=== PATIENT | female | born 1970 | race Caucasian/White ===

== ENCOUNTER → 2021-06-16 06:21 | Outpatient (CLI) | payer OTHER, SELFPAY ==
[2021-06-16 17:46] LABS: SARS-CoV-2 RNA PCR Negative
== END ==
PROVIDERS: PCP Internal Medicine; Visit Provider Nurse Practitioner
DX: R05.9 Cough, unspecified (principal); Z20.822 Contact with and (suspected) exposure to COVID-19
CPT/HCPCS: C9803; U0003; U0005

== ENCOUNTER 2021-09-07 09:09 | Outpatient (CLI) | payer OTHER, SELFPAY ==
--- NOTE | 2021-09-07 | ECG_ITS ---
Measurements Intervals [place] Rate: 74 P: 53 FL: 118 QRS: 70 QRSD: 77 T: 69 QT: 359 QTc: 398 Interpretive Statements SINUS RHYTHM WITH SHORT FL INTERVAL BORDERLINE ECG Electronically Signed On 09-07-2021 9:50:56 [employer] BLAST[employer] by Matt Cerda D.O.
== END 2021-09-07 09:10 | disposition home or self-care (01) ==
PROVIDERS: PCP Internal Medicine
DX: M25.522 Pain in left elbow (principal); R94.31 Abnormal electrocardiogram [ECG] [EKG]
CPT/HCPCS: 93005

== ENCOUNTER → 2022-04-12 10:31 | Outpatient (CLI) | payer OTHER, SELFPAY ==
--- NOTE | ~2022-04-12 | MM_ITS ---
EXAMINATION: MM scrn geovany implant BI w luan HISTORY: Screening mammogram TECHNIQUE: Craniocaudal and mediolateral oblique 3-D tomosynthesis images with implant displacement a nd synthetic 2-D images were generated. Craniocaudal and mediolateral oblique views of the breasts wi thout implant displacement were obtained using full field digital mammography. CAD analysis was submi tted and interpreted. COMPARISON: 09/07/2019, 09/01/2018, 07/29/2017, 10/24/2015 BREAST PARENCHYMAL COMPOSITION: There are scattered areas of fibroglandular density. FINDINGS: There is no evidence of suspicious mass, calcification, or architectural distortion to sugg est malignancy in either breast. There has been no suspicious interval change. IMPRESSION: 1. No mammographic evidence of malignancy. 2. Recommend routine screening mammography in one year. BI-RADS Category 1: Negative Reviewed, dictated and finalized at location A.
--- NOTE | ~2022-04-12 | DEXA_ITS ---
Bone Density Report Name: CINDI HORTA Age: 51 Sex: Female Ethnicity: White Date of : 1970 Indication: postmenopausal osteoporosis; monitoring treatment; height loss; Referring Provider: CHINEDU FRANCOIS Study: Bone densitometry was performed. Exam Date: April 12, 2022 Accession number: [id number] Bone Density: Region BMD T-score Z-score Classification AP Spine (L1-L4) 0.720 -3.0 -2.0 Osteoporosis Femoral Neck (Left) 0.609 -2.2 -1.2 Osteopenia Total Hip (Left) 0.775 -1.4 -0.8 Osteopenia Femoral Neck (Right) 0.605 -2.2 -1.2 Osteopenia Total Hip (Right) 0.770 -1.4 -0.8 Osteopenia Total Hip Mean 0.773 -1.4 -0.8 Osteopenia World Health Organization criteria for BMD impression classify patients as: Normal (T-score at or above -1.0), Osteopenia (T-score between -1.0 and -2.5), or Osteoporosis (T-score at or below -2.5). 10-year Fracture Risk: FRAX not reported because: Some T-score for Spine Total or Hip Total or Femoral Neck at or below -2.5 Treated for osteoporosis Previous Exams: Region Exam Age BMD T-score BMD Change BMD Change Date g/cm2 vs Baseline vs Previous AP Spine(L1-L4) 04/12/2022 51 0.720 -3.0 -0.042* -0.042* 09/07/2019 48 0.762 -2.6 Total Hip(Left) 04/12/2022 51 0.775 -1.4 0.006 0.006 09/07/2019 48 0.769 -1.4 Total Hip(Right) 04/12/2022 51 0.770 -1.4 0.000 0.000 09/07/2019 48 0.770 -1.4 *Denotes significance at 95% confidence level, LSC for AP Spine = 0.022 g/cm2, LSC for Total Hip = 0.027 g/cm2 Clinical Information Provided by Patient: Is being treated for osteoporosis Has used the following medications: Vitamin D, pt used bone med around 2 yrs ago for 6 months, unsure of name, MT currently Patient maximum height was 62.5 Menopause Age: 48 No regular weight bearing exercise Drinks caffeinated beverages Onset of menses at age 11 Number of children 2 Impression: The patient has osteoporosis, based on the Total Spine T-score. The BMD for the AP Spine(L1-L4) decreased, changing by -0.042 since the last DXA exam. Discussion: SIGNIFICANT BONE LOSS OBSERVED. Adherence to therapy (including calcium and vitamin D intake) should be assessed. If compliance is not a factor, review management and exclusion of secondary causes of bone loss. It is important to ask patients whether they are taking their medications and to encourage continued and appropriate comp
== END ==
PROVIDERS: PCP Internal Medicine; Visit Provider Obstetrics & Gynecology Gynecology
DX: Z12.31 Encounter for screening mammogram for malignant neoplasm of breast (principal); Z78.0 Asymptomatic menopausal state; M81.0 Age-related osteoporosis without current pathological fracture; M85.852 Other specified disorders of bone density and structure, left thigh; M85.851 Other specified disorders of bone density and structure, right thigh
CPT/HCPCS: 77063; 77067; 77080

== ENCOUNTER 2022-11-19 09:27 | Outpatient (CLI) | payer OTHER, SELFPAY ==
[2022-11-19 20:14] LABS: Basophils Absolute Auto 0.1 K/mm3 (0.0-0.1); Basophils Percent Auto 1.6 % (0.2-1.2); Eosinophils Absolute Auto 0.1 K/mm3 (0-0.3); Eosinophils Percent Auto 1.6 % (0-4.4); Hemoglobin 13.5 g/dL (12.0-15.0); Immature Granulocyte Absolute 0.01 K/mm3 (0.00-0.031); Immature Granulocyte Percent A 0.1 % (0-0.5); Lymphocytes Absolute Auto 1.74 K/mm3 (0.9-3.2); Lymphocytes Percent Auto 24.7 % (18.3-44.2); Mean Corpuscular HGB Conc 32.1 g/dl (32-36); Mean Corpuscular Hemoglobin 31.2 pg (26-34); Mean Platelet Volume 12.5 fl (7.4-10.4); Monocytes Absolute Auto 0.7 K/mm3 (0.1-0.6); Monocytes Percent Auto 10.2 % (2.6-8.5); Neutrophils Absolute Auto 4.4 K/mm3 (1.3-6.7); Neutrophils Percent Auto 61.8 % (45.5-73.1); Platelet Count Result 279 k/mm3 (150-375); Red Blood Count 4.33 M/mm3 (4.2-5.4); Red Cell Distribution Width 14.6 % (11.5-14.5); White Blood Count 7.1 K/mm3 (4.5-10.0)
[2022-11-19 20:36] LABS: Alanine Aminotransferase 18 U/L (6-35); Albumin Level 4.4 g/dL (3.5-5.1); Alkaline Phosphatase 77 U/L (38-126); Anion Gap 5 mmol/L (8-16); Aspartate Amino Transferase 21 U/L (14-36); Bilirubin,Total 0.9 mg/dL (0.2-1.3); Blood Urea Nitrogen 11 mg/dL (7-17); Calcium 9.2 mg/dL (8.4-10.2); Carbon Dioxide 29 mmol/L (22-30); Chloride 105 mmol/L (98-107); Cholesterol 204 mg/dL (0-200); Creatine Kinase 63 U/L (30-135); Estimated Glomerular Filt Rate > 60; Glucose 95 mg/dL (65-110); HDL Direct 57 mg/dL; Potassium 4.2 mmol/L (3.4-5.0); Sodium 139 mmol/L (137-145); Triglycerides 76 mg/dL (<150)
[2022-11-19 20:40] LABS: Rheumatoid Factor < 8.6 IU/ML (<12)
[2022-11-19 20:47] LABS: LDL Cholesterol Direct 101 mg/dL
[2022-11-19 20:51] LABS: Erythrocyte Sedimentation Rate 15 mm/hr (0-20)
[2022-11-22 20:31] LABS: ANA Cascade Screen Negative (Negative)
== END 2022-11-19 09:28 | disposition home or self-care (01) ==
LOC: ANHGOSHLAB 09:28
PROVIDERS: PCP Internal Medicine; Visit Provider Nurse Practitioner
DX: R74.8 Abnormal levels of other serum enzymes (principal); E03.9 Hypothyroidism, unspecified; M25.50 Pain in unspecified joint
CPT/HCPCS: 36415; 80053; 80061; 82550; 84443; 85025; 85652; 86038; 86430

== ENCOUNTER 2022-12-04 08:43 | Outpatient (CLI) | payer OTHER, SELFPAY ==
--- NOTE | ~2022-12-04 | XR_ITS ---
EXAMINATION: XR knee RT 3V DATE: 12/04/2022 08:54 INDICATION: Right knee pain. TECHNIQUE: 3 views of right knee were obtained. COMPARISON: None. FINDINGS: Bone alignment is normal. No fracture. Joint spaces are normal. No knee joint effusion. IMPRESSION: 1. Normal right knee. Reviewed, dictated and finalized at location A. IMPRESSION: 1. Normal right knee.
--- NOTE | ~2022-12-04 | XR_ITS ---
EXAMINATION: XR knee LT 3V DATE: 12/04/2022 08:54 INDICATION: Left knee pain. TECHNIQUE: 3 views of left knee were obtained. COMPARISON: None. FINDINGS: Bone alignment is normal. No fracture. Joint spaces are normal. No knee joint effusion. IMPRESSION: 1. Normal left knee. Reviewed, dictated and finalized at location A. IMPRESSION: 1. Normal left knee.
== END 2022-12-04 08:44 ==
PROVIDERS: PCP Internal Medicine; Visit Provider Clinical Nurse Specialist
DX: M25.561 Pain in right knee (principal); M25.562 Pain in left knee
CPT/HCPCS: 73562

== ENCOUNTER 2023-09-24 09:45 | Outpatient (CLI) | payer OTHER, SELFPAY ==
[2023-09-24 10:25] LABS: Basophils Absolute Auto 0.1 K/mm3 (0.0-0.1); Basophils Percent Auto 1.3 % (0.2-1.2); Eosinophils Absolute Auto 0.2 K/mm3 (0-0.3); Eosinophils Percent Auto 3.6 % (0-4.4); Hematocrit 42.4 % (37.0-47.0); Hemoglobin 13.4 g/dL (12.0-15.0); Immature Granulocyte Absolute 0.01 K/mm3 (0.00-0.031); Immature Granulocyte Percent A 0.2 % (0-0.5); Lymphocytes Percent Auto 43.6 % (18.3-44.2); Mean Corpuscular HGB Conc 31.6 g/dl (32-36); Mean Corpuscular Hemoglobin 30.8 pg (26-34); Mean Corpuscular Volume 97.5 fl (80-100); Monocytes Absolute Auto 0.6 K/mm3 (0.1-0.6); Monocytes Percent Auto 11.7 % (2.6-8.5); Neutrophils Absolute Auto 2.1 K/mm3 (1.3-6.7); Neutrophils Percent Auto 39.6 % (45.5-73.1); Platelet Count Result 198 k/mm3 (150-375); Red Blood Count 4.35 M/mm3 (4.2-5.4); Red Cell Distribution Width 13.7 % (11.5-14.5); White Blood Count 5.3 K/mm3 (4.5-10.0)
== END 2023-09-24 09:46 | disposition home or self-care (01) ==
LOC: ANHSURGERY 09:49
PROVIDERS: PCP Internal Medicine; Visit Provider Surgery
DX: K40.90 Unilateral inguinal hernia, without obstruction or gangrene, not specified as recurrent (principal); D17.1 Benign lipomatous neoplasm of skin and subcutaneous tissue of trunk
CPT/HCPCS: 36415; 85025

== ENCOUNTER 2023-09-30 02:12 | Day surgery (SDC) | payer OTHER, SELFPAY ==
[2023-09-19 08:38] VITALS: BMI 22.6
--- NOTE | 2023-09-19 08:42 | PC.NURSE ---
Report to the Outpatient Waiting Room, entrance under the green pavilion located off [facility], at time 10:00 on date 09/26/23. Planned Procedure Time: 12:00. Time changes happen often and if your time is changed the preop area will call you the afternoon before. - You and your visitor will be asked to self-screen and do not enter if you have any COVID symptoms. - A mask is optional within the hospital at this time. Patients may have clear liquids (water, carbonated beverages, clear teas, apple juice) until 3 hours prior to surgery (9:00) with a maximum of 20 ounces. - No food from midnight until time of surgery Take the following medications with a SIP of water the morning of surgery: LEVOTHYROXINE DO NOT STOP ANY OF YOUR OTHER PRESCRIPTION MEDICATIONS PRIOR TO SURGERY ?EXCEPT THE FOLLOWING Medications to discontinue per physician: VITAMINS/SUPPLEMENTS Date to take last dose: 09/22/23 Please no make-up, nail algerian, hairspray, perfume, deodorant, or body powder the day of surgery. No jewelry (including any body piercings) or valuables the day of surgery, leave them at home. Please take a shower or bath the night before, or the morning of, surgery with an antibacterial soap. Wear comfortable, loose fitting clothing. - Jewelry must be removed prior to entering the operating room. Rings and piercings that are not removed may be cut off. - The hospital will not accept responsibility for valuables. - Please leave all valuables, including medications, at home the day of surgery. If you are going home after surgery, a licensed car pick up driver must drive you home. - NO public transportation without another adult if you receive anesthesia. - We recommend that an adult stay with you for 24 hours following discharge. - We also recommend that you do not drive, make important decision, drink alcoholic beverages, or take any drugs that were not prescribed by your health care provider for at least 24 hours after your discharge time. Follow any additional instructions given to you from your surgeon. If you or anyone in your household have experienced Covid symptoms in the past week, please notify your surgeon or the nurse liaison at the phone number below for possible testing. Telephone instructions given to PT - CINDI HORTA and asked if any additional questions and then verbalized understanding. Patient advised to call surgeon office or pre surgery nurse liaison [phone] if any additional questions.
--- NOTE | 2023-09-24 08:35 | PC.NURSE ---
Pt states no changes in medications or health history since initial interview. New pre-op instructions reviewed with pt. Pt denies further questions at this time.
--- NOTE | 2023-09-24 08:36 | PC.NURSE ---
Report to the Outpatient Waiting Room, entrance under the green pavilion located off [facility], at time 6:00 on date 09/30/23. Planned Procedure Time: 7:30. Time changes happen often and if your time is changed the preop area will call you the afternoon before. - You and your visitor will be asked to self-screen and do not enter if you have any COVID symptoms. - A mask is optional within the hospital at this time. Patients may have clear liquids (water, carbonated beverages, clear teas, apple juice) until 3 hours prior to surgery (4:30) with a maximum of 20 ounces. - No food from midnight until time of surgery Take the following medications with a SIP of water the morning of surgery: LEVOTHYROXINE DO NOT STOP ANY OF YOUR OTHER PRESCRIPTION MEDICATIONS PRIOR TO SURGERY ?EXCEPT THE FOLLOWING Medications to discontinue per physician: VITAMINS/SUPPLEMENTS Date to take last dose: 09/26/23 Please no make-up, nail latvian, hairspray, perfume, deodorant, or body powder the day of surgery. No jewelry (including any body piercings) or valuables the day of surgery, leave them at home. Please take a shower or bath the night before, or the morning of, surgery with an antibacterial soap. Wear comfortable, loose fitting clothing. - Jewelry must be removed prior to entering the operating room. Rings and piercings that are not removed may be cut off. - The hospital will not accept responsibility for valuables. - Please leave all valuables, including medications, at home the day of surgery. If you are going home after surgery, a licensed otr company truck driver must drive you home. - NO public transportation without another adult if you receive anesthesia. - We recommend that an adult stay with you for 24 hours following discharge. - We also recommend that you do not drive, make important decision, drink alcoholic beverages, or take any drugs that were not prescribed by your health care provider for at least 24 hours after your discharge time. Follow any additional instructions given to you from your surgeon. If you or anyone in your household have experienced Covid symptoms in the past week, please notify your surgeon or the nurse liaison at the phone number below for possible testing. Telephone instructions given to PT - CINDI HORTA and asked if any additional questions and then verbalized understanding. Patient advised to call surgeon office or pre surgery nurse liaison [phone] if any additional questions.
[2023-09-30] VITALS (8 sets, daily range): BP systolic 93–115; BP diastolic 52–72; PULSE 75–97; RESP 13–17; TEMP 36.3–37; O2SAT 100
[2023-09-30] MEDS: ACETAMINOPHEN 500 MG TABLET 1000 MG PO (06:44)
[2023-09-30] MEDS: KETOROLAC 15 MG/ML VIAL (*BKC) IV PUSH (06:46)
[2023-09-30] MEDS: LACTATED RINGERS 1,000 ML 30 ML IV CONT ×2 (06:47→09:53)
--- NOTE | 2023-09-30 07:06 | WPDANESEPPF ---
Anes - Initial Pre Proc Eval Procedure: Operation Date: 09/30/23 07:30 Proposed Procedures p Open Right Inguinal Hernia Repair with Mesh, - Luis Villanueva MD s Excision of Recurrent Right Shoulder Lipoma - Luis Villanueva MD Date/Time: 09/30/23 07:06 Surgeon: Luis Villanueva MD Pre Op Diagnosis: rt inguinal hernia,recurr rt shoulder lipoma 1.5cm Patient Data Age: 53 Gender: F Height: 1.59 m Weight: 56.8 kg Last Vital Signs Temp 98.6 F 09/30/23 07:01 Pulse 97 09/30/23 07:01 Resp 16 09/30/23 07:01 BP 93/64 L 09/30/23 07:01 Pulse Ox 100 09/30/23 07:01 O2 Del Method Room Air 09/30/23 07:01 Allergies Allergy/AdvReac Type Severity Reaction Status Date / Time hydrocodone [From Vicodin] Allergy Hallucinati Verified 09/30/23 06:20 ng Home Medications Medication Instructions Recorded Confirmed Type cholecalciferol (vitamin D3) 25 1,000 unit PO DAILY 07/17/19 09/24/23 History mcg (1,000 unit) capsule (Vitamin D3) levothyroxine 25 mcg tablet 25 mcg PO DAILY 07/17/19 09/24/23 History multivitamin with minerals (Daily 1 tablet PO DAILY 07/17/19 09/24/23 History Multivitamin-Minerals tablet) melatonin 5 mg capsule 5 mg PO HS PRN Insomnia 08/02/23 09/24/23 History Patient hx anesthesia problems: post op nausea/vomiting Family hx anesthesia problems: none Results Review: All pre-operative results and documents have been reviewed as part of the pre-operative evaluation. [facility] Past Medical History Medical History (Updated 08/05/23 @ 08:39 by Sindi Nugent CMA) Colon cancer screening Hypothyroid Tendonitis Surgical History Surgical History (Updated 08/05/23 @ 08:29 by Sindi Nugent CMA) History of abdominoplasty History of back surgery History of breast augmentation History of hernia repair 2017 left inguinal hernia repair, Dr. Willams. Hx of shoulder surgery S/P tendon repair Family History Family History Sibling Diabetes mellitus Mother Family history of osteoporosis Family history of lung cancer Father Family history of chronic obstructive pulmonary disease Family history of malignant neoplasm of esophagus Social History Social History Smoking status: Never smoker Alcohol intake: current Alcohol use details: RARE Substance use: never Substance use type: does not use Lack of Transportation: No Lack of Food: Never True Current Housing: I Have Housing Concerned About Future Housing: No Difficulty Paying Gas/Electric Bills: No Difficulty Paying for Meds: No Currently Unemployed: No Education: Trade/Vocational Certificate Living arrangements: with family Spiritual care concerns: No Anes - Eval Final PreProcedure Day of Procedure 09/30/23 07:06 Patient weight: normal Heart: regular rate and rhythm Lungs: clear to auscultation Airway: Mallampati scale class II Neurological: alert and oriented Last oral intake: >/= 8 hours ASA classification: II Emergent: no Anesthetic plan: proceed Anesthesia type and monitoring: general GIVS and standard monitoring Results Review: All pre-operative results and documents have been reviewed as part of the pre-operative evaluation. Informed Consent: The patient's anesthetic plan and its attendant risks and benefits were discussed with the patient/family/POA. Questions were solicited and answers provided to the satisfaction of the patient/family/POA.
[2023-09-30] MEDS: SCOPOLAMINE 1 MG PATCH 1 PATCH TRANSDERM (07:09)
--- NOTE | 2023-09-30 07:44 | PM.IMHP ---
H&P: HPI History of Present Illness Date/Time: 09/30/23 07:44 Chief Complaint: Right inguinal hernia Narrative: Michelle is a 52 y/o female who presents to the office at the request of Brisa STEWARD for evaluation of right inguinal hernia. Patient states she noticed a right groin bulge 6 months following her left inguinal hernia repair 5 years ago. She states it has gradually increased in size. She reports minor discomfort with straining while having a BM. Denies any issues with eating. Patient also reports subcutaneous mass on her right shoulder. She has a history of removal of a lipoma from the right shoulder. Review of Systems Review of Systems: The remainder of the review of systems to include constitutional, HEENT, cardiovascular, respiratory, GI, , integumentary, musculoskeletal, endocrine, immunologic, hematologic, psychiatric, and neurologic are all negative except for which is mentioned above in the HPI. [facility] Past Medical History Medical History Colon cancer screening Hypothyroid Tendonitis Surgical History Surgical History History of abdominoplasty History of back surgery History of breast augmentation History of hernia repair 2017 left inguinal hernia repair, Dr. Willams. Hx of shoulder surgery S/P tendon repair Family History Family History Sibling Diabetes mellitus Mother Family history of osteoporosis Family history of lung cancer Father Family history of chronic obstructive pulmonary disease Family history of malignant neoplasm of esophagus Social History Social History Smoking status: Never smoker Alcohol intake: current Alcohol use details: RARE Substance use: never Substance use type: does not use Lack of Transportation: No Lack of Food: Never True Current Housing: I Have Housing Concerned About Future Housing: No Difficulty Paying Gas/Electric Bills: No Difficulty Paying for Meds: No Currently Unemployed: No Education: Trade/Vocational Certificate Living arrangements: with family Spiritual care concerns: No Meds Home Medications and Allergies Home Medications Medication Instructions Recorded Confirmed Type cholecalciferol (vitamin D3) 25 1,000 unit PO DAILY 07/17/19 09/24/23 History mcg (1,000 unit) capsule (Vitamin D3) levothyroxine 25 mcg tablet 25 mcg PO DAILY 07/17/19 09/24/23 History multivitamin with minerals (Daily 1 tablet PO DAILY 07/17/19 09/24/23 History Multivitamin-Minerals tablet) melatonin 5 mg capsule 5 mg PO HS PRN Insomnia 08/02/23 09/24/23 History Allergies Allergy/AdvReac Type Severity Reaction Status Date / Time hydrocodone [From Vicodin] Allergy Hallucinati Verified 09/30/23 06:20 ng Vital Signs Vital Signs - 24 hr 09/30/23 07:01 Temperature 37.0 C Pulse Rate 97 Respiratory Rate 16 Blood Pressure 93/64 L Pulse Oximetry 100 Oxygen Delivery Room Air Exam Const: General: comfortable and no acute distress HENMT: Ears: TM's normal bilaterally Face/Nose/Sinus: Normal nares present Mouth: Yes moist mucous membranes Eyes: General: appearance normal, both eyes and all related structures Sclera: sclerae normal Pupils: Equal, round and reactive pupils present EOM: EOMs intact bilaterally Neck: Neck: supple and no JVD Resp: Effort & Inspection: normal respiratory effort Auscultation: clear to auscultation bilaterally Cardio: Rate: regular rate Rhythm: regular rhythm GI: Other: Inspection: normal to inspection Auscultation: normal bowel sounds Palpation/Percussion: Yes non-tender, Yes no guarding, No Rebound tenderness present and Yes normal to percussion Other: Left inguinal scar that is well healed, no hernia, no bulge. On the right side, small right inguinal h
--- NOTE | 2023-09-30 07:50 | WPDHPUPDATE1 ---
History and Physical Update Update Date/Time: 09/30/23 07:50 History and Physical has been reviewed, including an updated exam of the patient. There are NO changes in the patient's condition. Risks, benefits, and alternatives have been discussed and questions answered. Patient agrees to proceed with procedure.
[2023-09-30] MEDS: ceFAZolin 2 GM/D5W 50 ML 2 GM/50 ML BAG IVPB (08:00)
[2023-09-30] MEDS: BUPivacaine HCL 0.5% PF 30 ML VIAL INFILTRATE (08:29)
[2023-09-30] MEDS: LIDO 1%/EPINEPHRINE 1:100,000 20 ML VIAL 30 ML INFILTRATE (08:31)
--- NOTE | 2023-09-30 10:17 | W.PM.PROC2 ---
Procedure Note - Detailed Date of Procedure 09/30/23 Pre-op Diagnosis Rt inguinal hernia,recurr Rt shoulder lipoma Post-op Diagnosis Same Procedure Performed 1.) Open reducible right inguinal hernia repair with UHS mesh. 2.) Excision recurrent right shoulder lipoma Surgeon Luis Villanueva MD Solution Maker Eufemia MAX, Tameka MAX Anesthesia MAC (LMA) Indications Patient is a 53-year-old female who presented with a small bulge right groin region. It is reducible. On exam she was diagnosed with reducible right inguinal hernia. She also has a small subcutaneous mass in the right shoulder region where she had a previous lipoma removed. She presents now for an open right inguinal hernia repair with mesh and excision of the recurrent lipoma on the right shoulder. Findings Patient has small reducible indirect right inguinal hernia. She also had a [id number] recurrent lipoma in the right shoulder. Description of Procedure After informed consent was obtained patient brought to the operating room she was placed supine on the operating table and then IV sedation with LMA was administered by anesthesia. The right groin and lower abdomen was then prepped and draped usual sterile fashion. A time-out was then performed correctly identifying the patient as well as procedure to be performed and verifying the site marking. 1% lidocaine mixed with 0.5% Marcaine was then injected about 2 fingerbreadths above the palpated right pubic tubercle. A transverse incision was then made this area with a scalpel the dissection was carried down through the subcutaneous tissues down through Rigoberto's fascia electrocautery. The external oblique aponeurosis was encountered and the subcutaneous tissue was dissected off of the anterior fascia. I then identified the external ring. I incised the external oblique aponeurosis along the direction was fibers of scalpel and then opened widely out through the external ring utilizing electrocautery. the hemostatic muscle fibers and internal oblique muscle fibers from the undersurface the external oblique aponeurosis utilized electrocautery. I then isolated the round ligament and the pubic tubercle with blunt finger dissection placed a [place] drain around for further traction. I then further mobilized the round ligament by dividing some more cremasteric muscle fibers. The floor of the inguinal canal was examined it was intact without evidence of a direct inguinal defect. I then explored the round ligament and identified a small indirect inguinal hernia sac. This was dissected out the level of the internal ring. Was also a lipoma in the round ligament and this was dissected up the level internal ring as well. A 3-0 Vicryl suture was then used to ligate the hernia sac at the level the internal ring in the distal portion of the sac was resected with electrocautery and discarded. The lipoma in the cord lipoma was ligated at the internal ring as well with a 3-0 Vicryl suture and divided. The distal portion of the lipoma was discarded. Then with retractors through the dilated internal ring I then dissected out the preperitoneal space with blunt finger and sponge dissection. Once this was accomplished I then used a large piece of Ultrapro hernia system mesh for the repair. The underlay portion of mesh placed through the dilated internal ring into the preperitoneal space and spread out widely the cover the whole myopectineal orifice. The cylindrical connecting portion of the mesh skin through the dilated internal ring and the overlay portion of mesh was spread out over the floor of the inguinal canal. The overlay portion of mesh was then secured to tissues were the pubic tubercle utilizing interrupted 2-0 Vicryl sutures. Medially the mesh was secured to the internal oblique muscle fibers utilizing interrupted 2-0 Vicryl sutures in laterally the overlay mesh was secured to the shelving edge of the external oblique aponeurosis wit
--- NOTE | 2023-09-30 10:20 | SUR.PHASEI ---
1020: Simple mask removed.
== END 2023-09-30 11:32 | disposition home or self-care (01) ==
PROVIDERS: PCP Internal Medicine; Visit Provider Surgery
PROC: (CPT 49505; principal; 2023-09-30 07:30)
PROC: (CPT 49505; 2023-09-30 07:30)
DX: K40.90 Unilateral inguinal hernia, without obstruction or gangrene, not specified as recurrent (principal); D17.21 Benign lipomatous neoplasm of skin and subcutaneous tissue of right arm; E03.9 Hypothyroidism, unspecified; Z98.890 Other specified postprocedural states; Z80.1 Family history of malignant neoplasm of trachea, bronchus and lung; Z86.018 Personal history of other benign neoplasm; Z80.0 Family history of malignant neoplasm of digestive organs
CPT/HCPCS: 49505; 23075; 88304; A9270; C1781; J0690; J1100; J1885; J2250; J2371; J2405; J2704; J3010; J7120